=== PATIENT | female | born 1980 | race Caucasian/White ===

== ENCOUNTER 2023-04-17 12:55 | Outpatient (AMB) | payer OTHER, SELFPAY ==
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
== END 2023-04-17 14:06 | disposition home or self-care (01) ==
PROVIDERS: PCP Physician Assistant Medical; Visit Provider Nurse Practitioner Family
DX: N39.0 Urinary tract infection, site not specified (principal); R82.90 Unspecified abnormal findings in urine; Z13.9 Encounter for screening, unspecified
CPT/HCPCS: 99204

== ENCOUNTER 2023-04-17 12:55 | Outpatient (REF) | payer OTHER, SELFPAY ==
[2023-04-17 18:33] LABS: Urine Cytology See Pathology rpt
== END 2023-04-17 12:56 | disposition home or self-care (01) ==
LOC: HO.LNP 12:55
PROVIDERS: PCP Physician Assistant Medical; Visit Provider Nurse Practitioner Family
DX: N39.0 Urinary tract infection, site not specified (principal); R82.90 Unspecified abnormal findings in urine; Z79.899 Other long term (current) drug therapy
CPT/HCPCS: 81003; 87086; 87088; 87186; 88112; 99202

== ENCOUNTER 2023-05-12 15:37 | Outpatient (REF) | payer OTHER, SELFPAY ==
--- NOTE | ~2023-05-12 | US_ITS ---
EXAMINATION: US RETROPERITONEAL COMPLETE (RENAL) CLINICAL INFORMATION: Urinary tract infection, site not specified. COMPARISON: None available. TECHNIQUE: Real-time imaging of the kidneys and bladder. FINDINGS: RIGHT KIDNEY: 12.1 x 3.8 x 5.0 cm (SAG x AP x TRV). The kidney is normal in size, contour, and echogenicity. Renal cortical thickness is normal. No calculi or focal parenchymal lesions. No hydronephrosis. LEFT KIDNEY: 10.1 x 4.3 x 4.7 cm (SAG x AP x TRV). The kidney is normal in size, contour, and echogenicity. Renal cortical thickness is normal. No focal parenchymal lesions or hydronephrosis. Midpole calculus measures 9 x 5 x 8 mm. BLADDER: Well distended and normal. Bilateral ureteral jets are demonstrated. Prevoid bladder volume is 194.5 mL. Postvoid bladder volume is 0.6 mL. US/US retroperitoneal comp IMPRESSION: Nonobstructing left renal calculus measures 9 x 5 x 8 mm. No hydronephrosis.
== END 2023-05-12 15:38 | disposition home or self-care (01) ==
LOC: HO.US 15:37
PROVIDERS: PCP Physician Assistant Medical; Visit Provider Nurse Practitioner Family
DX: N39.0 Urinary tract infection, site not specified (principal); R82.90 Unspecified abnormal findings in urine
CPT/HCPCS: 76770

== ENCOUNTER 2023-05-30 13:19 | Outpatient (REF) | payer OTHER, SELFPAY | END 2023-05-30 13:20 | disposition home or self-care (01) | LOC: HO.LAB 13:19 | PROVIDERS: PCP Physician Assistant Medical; Visit Provider Nurse Practitioner Family | DX: R82.90 Unspecified abnormal findings in urine (principal); N39.0 Urinary tract infection, site not specified; N20.0 Calculus of kidney | CPT/HCPCS: 81003; 87086; 87088; 87186; 99212 ==

== ENCOUNTER 2023-05-30 13:19 | Outpatient (AMB) | payer OTHER, SELFPAY ==
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
== END 2023-05-30 14:24 | disposition home or self-care (01) ==
PROVIDERS: PCP Physician Assistant Medical; Visit Provider Nurse Practitioner Family
DX: R82.90 Unspecified abnormal findings in urine (principal); N39.0 Urinary tract infection, site not specified; N20.0 Calculus of kidney
CPT/HCPCS: 99214

== ENCOUNTER 2023-05-30 14:50 | Outpatient (REF) | payer OTHER, SELFPAY ==
--- NOTE | ~2023-05-30 | XR_ITS ---
EXAMINATION: XR ABDOMEN KUB CLINICAL INDICATION: Calculus of kidney. COMPARISON: None available. TECHNIQUE: 2 AP views of the abdomen. FINDINGS: Nonobstructive bowel gas pattern. [id number] amount of stool throughout the colon. Filter overlies the right aspect of the presumed L3 vertebral body. Surgical hardware with evidence of prior trauma at the superior pubic rami and pubic symphysis. There appears to be a break in the hardware along the left superior pubic ramus. Left intramedullary eugenia with 2 screws partially imaged. Two (2) screws traverse upper sacrum on the right with multiple coiled devices inferiorly. No definitive renal calculi are appreciated, although evaluation is limited due to overlying bowel. XR/XR KUB IMPRESSION: 1. No definitive renal calculi are appreciated, although evaluation is limited due to overlying bowel. 2. Surgical hardware with evidence of prior trauma at the superior pubic rami and pubic symphysis. There appears to be a break in the hardware along the left superior pubic ramus. Correlation with clinical exam and prior images recommended to determine further management.
== END 2023-05-30 14:51 | disposition home or self-care (01) ==
LOC: HO.XRAY 14:50
PROVIDERS: Visit Provider Nurse Practitioner Family
DX: N20.0 Calculus of kidney (principal)
CPT/HCPCS: 74018

== ENCOUNTER 2023-06-06 09:10 | Outpatient (AMB) | payer OTHER, SELFPAY ==
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
== END 2023-06-06 09:42 | disposition home or self-care (01) ==
LOC: HO.HUSH 09:10
PROVIDERS: PCP Physician Assistant Medical; Visit Provider Nurse Practitioner Family
DX: N20.0 Calculus of kidney (principal); R31.29 Other microscopic hematuria
CPT/HCPCS: 99213

== ENCOUNTER → 2023-06-06 09:10 | Outpatient (BNVA) | payer OTHER, SELFPAY | PROVIDERS: PCP Physician Assistant Medical; Visit Provider Nurse Practitioner Family | DX: N20.0 Calculus of kidney (principal); R31.29 Other microscopic hematuria | CPT/HCPCS: 99212 ==

== ENCOUNTER 2023-08-01 14:40 | Outpatient (REF) | payer OTHER, SELFPAY ==
--- NOTE | ~2023-08-01 | CT_ITS ---
EXAMINATION: CT ABDOMEN AND PELVIS WITHOUT AND WITH CONTRAST CLINICAL INFORMATION: Gross hematuria. COMPARISON: None available. TECHNIQUE: Noncontrast CT of the abdomen and pelvis is performed followed by split bolus contrast-enhanced images using 85 mL Omnipaque 350 contrast. Postcontrast imaging is performed during the combined nephrogram and excretion phase. Sagittal and coronal reformatted images were obtained on the technologist's workstation for both the precontrast and postcontrast phases. This CT examination was performed using dose optimization techniques as appropriate, variously including the following: *Automated exposure control *Adjustment of mA and/or kV according to patient size (this includes techniques or standardized protocols for targeted exams where dose is matched to indication/reason for exam; i.e. extremities or head) *Use of iterative reconstruction technique DLP: 794 mGy-cm FINDINGS: LUNG BASES: The visualized lung bases are unremarkable. LIVER, GALLBLADDER, AND BILIARY TREE: The liver is normal in size, shape, and attenuation. No focal hepatic lesion or biliary ductal dilatation is present. The gallbladder contains 3 small layering gallstones but otherwise unremarkable with no evidence of gallbladder wall thickening, or obvious pericholecystic inflammatory changes. PANCREAS: Unremarkable. SPLEEN: Unremarkable. ADRENAL GLANDS: Unremarkable. KIDNEYS AND URETERS: The kidneys are normal in size, shape, and attenuation aside from some mild scarring with cortical loss at the left upper pole and left mid kidney posteriorly (see manzano images). No hydronephrosis, hydroureter, or calculi seen. No perinephric stranding. 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 No suspicious renal masses are seen. No filling defects or mucosal abnormalities are seen in the collecting systems. BLADDER: Unremarkable. GASTROINTESTINAL TRACT: The small and large bowel are unremarkable. The appendix is unremarkable. ABDOMINAL WALL: No significant hernia is appreciated. LYMPH NODES: No retroperitoneal lymphadenopathy. VASCULAR: The aorta and iliac vessels are unremarkable. A Hardik Nitinol filter is in place in the IVC. Inferior legs protrude beyond the lumen of the aorta into the retroperitoneum which is often seen. PELVIC VISCERA: An anteverted uterus is present. There is a possible cystic subserosal fibroid or possible right ovarian cyst present and pelvic ultrasound is recommended for further evaluation. No free intraperitoneal fluid is seen. OSSEUS STRUCTURES: There has been prior fracture with plate and screw extending across the pubic symphysis. 2 screws are present extending from the right iliac bone into the sacrum. Embolization coils are seen in the right hypogastric. An intramedullary eugenia is seen in the left femur. CT/CT urogram IMPRESSION: 1. A cause for the patient's gross hematuria has not been found. 2. Incidental note made of cholelithiasis, IVC filter, posttraumatic/postoperative changes in the pelvis and left femur and possible right ovarian cyst versus subserosal fibroid. Endovaginal and transabdominal ultrasound is recommended for further evaluation.
[2023-08-01] MEDS: iohexoL 350 MG/ML 100 ML INFUS..BTL 85 ML IV (16:06)
[2023-08-01 16:46] LABS: Appearance Urine Clear; Color Urine Yellow; Glucose Urine UA Negative (Negative); Leukocyte Esterase Urine Small (1+) (Negative); Nitrite Urine Positive (Negative); Specific Gravity - Urine 1.015 (1.005-1.025); UMIC TRIGGER UA YES; Urine Blood Negative (Negative); Urine Ketones Negative (Negative); Urine Protein Negative (Neg-Trace)
[2023-08-01 17:02] LABS: Bacteria Urine 4+ (None Seen); Hyaline Casts Urine 0-2 /LPF (0-2); RBC Urine 0-2 /HPF (0-2); WBC Urine 0-5 /HPF (0-5)
== END 2023-08-01 14:41 | disposition home or self-care (01) ==
LOC: HO.CT 14:40
PROVIDERS: PCP Physician Assistant Medical; Visit Provider Nurse Practitioner Family
DX: R31.0 Gross hematuria (principal); N20.0 Calculus of kidney; R82.90 Unspecified abnormal findings in urine; N39.0 Urinary tract infection, site not specified
CPT/HCPCS: 74178; 81001; 87086; 87088; 87186; Q9967

== ENCOUNTER 2023-08-28 14:26 | Outpatient (AMB) | payer OTHER, SELFPAY ==
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
== END 2023-08-28 15:20 | disposition home or self-care (01) ==
PROVIDERS: PCP Physician Assistant Medical; Visit Provider Nurse Practitioner Family
DX: N20.0 Calculus of kidney (principal); R31.29 Other microscopic hematuria; N39.0 Urinary tract infection, site not specified
CPT/HCPCS: 99214

== ENCOUNTER → 2023-08-28 14:26 | Outpatient (BNVA) | payer OTHER, SELFPAY | PROVIDERS: PCP Physician Assistant Medical; Visit Provider Nurse Practitioner Family | DX: N20.0 Calculus of kidney (principal); N39.0 Urinary tract infection, site not specified; R31.29 Other microscopic hematuria | CPT/HCPCS: 51798; 81003; 99212 ==

== ENCOUNTER 2023-10-06 12:41 | Outpatient (AMB) | payer OTHER, SELFPAY ==
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
== END 2023-10-06 13:37 | disposition home or self-care (01) ==
PROVIDERS: PCP Physician Assistant Medical; Visit Provider Urology
DX: R31.29 Other microscopic hematuria (principal); N20.0 Calculus of kidney; R82.90 Unspecified abnormal findings in urine; N39.0 Urinary tract infection, site not specified; Z13.9 Encounter for screening, unspecified
CPT/HCPCS: 52000; 99214

== ENCOUNTER → 2023-10-06 12:41 | Outpatient (BNVA) | payer OTHER, SELFPAY | PROVIDERS: PCP Physician Assistant Medical; Visit Provider Urology | DX: N20.0 Calculus of kidney (principal); N39.0 Urinary tract infection, site not specified | CPT/HCPCS: 52000; 81003; 99212 ==

== ENCOUNTER 2023-12-26 14:36 | Outpatient (AMB) | payer OTHER, SELFPAY ==
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
== END 2023-12-26 16:00 ==
LOC: HO.HUSH 14:36
PROVIDERS: PCP Physician Assistant Medical; Visit Provider Nurse Practitioner Family
DX: R31.29 Other microscopic hematuria (principal); N20.0 Calculus of kidney; N39.0 Urinary tract infection, site not specified; R82.90 Unspecified abnormal findings in urine
CPT/HCPCS: 99213; G2211

== ENCOUNTER → 2023-12-26 14:36 | Outpatient (BNVA) | payer OTHER, SELFPAY | PROVIDERS: PCP Physician Assistant Medical; Visit Provider Nurse Practitioner Family ==